=== PATIENT | male | born 1980 | race Caucasian/White ===

== ENCOUNTER 2018-10-09 12:43 | Emergency (ER) | payer OTHER ==
[2018-10-09] MEDS: ACETAMINOPHEN 500 MG TAB PO (14:50)
[2018-10-09] MEDS: ONDANSETRON 4 MG INJ IV (14:50)
[2018-10-09] MEDS: SOD CHLORIDE 0.9% 1,000 ML IV (14:51)
[2018-10-09] MEDS: morphine 4 MG/ML VIAL IV (14:58)
[2018-10-09 15:05] LABS: WHITE BLOOD COUNT 13.4 10^3/ul (4.8-10.8)
[2018-10-09 15:05] LABS: ABNORMAL IP MESSAGE 1; HEMATOCRIT 44.5 % (42.0-52.0); HEMOGLOBIN 15.1 g/dl (14.0-18.0); MEAN CORPUSCULAR HEMOGLOBIN 29.5 pg (29.0-33.0); MEAN CORPUSCULAR HGB CONC 33.9 g/dl (32.0-37.0); MEAN CORPUSCULAR VOLUME 86.9 fl (82.0-101.0); MEAN PLATELET VOLUME 9.7 fl (7.4-10.4); PLATELET COUNT 236 10^3/UL (140-415); POSITIVE DIFF @See below; RED BLOOD COUNT 5.12 10^6/ul (4.70-6.10); RED CELL DISTRIBUTION WIDTH 12.4 % (11.5-14.5)
[2018-10-09 15:13] LABS: ADD UMIC YES; UR ASCORBIC ACID NEGATIVE (NEGATIVE); UR BILIRUBIN (Dip) NEGATIVE (NEGATIVE); UR BLOOD (Dip) NEGATIVE (NEGATIVE); UR CLARITY CLEAR (CLEAR); UR COLOR YELLOW (YELLOW); UR GLUCOSE (Dip) NEGATIVE (NEGATIVE); UR KETONES (Dip) TRACE mg/dL (NEGATIVE); UR LEUKOCYTE ESTERASE (Dip) NEGATIVE Leu/ul (NEGATIVE); UR MUCUS FEW /HPF (NONE SEEN); UR NITRITE (Dip) NEGATIVE (NEGATIVE); UR RBC 3 /HPF (0-5); UR SPECIFIC GRAVITY (Dip) 1.026 (1.003-1.030); UR TOTAL PROTEIN (Dip) 1+ mg/dl (NEGATIVE); UR UROBILINOGEN (Dip) NEGATIVE (NEGATIVE); UR WBC 1 /HPF (0-5)
[2018-10-09 15:18] LABS: ADD MAN DIFF? YES
[2018-10-09 15:27] LABS: ALANINE AMINOTRANSFERASE 30 IU/L (13-69); ALBUMIN 4.7 g/dl (3.3-4.9); ALBUMIN/GLOBULIN RATIO 1.38; ALKALINE PHOSPHATASE 81 IU/L (42-121); ANION GAP 10 (5-13); ASPARTATE AMINO TRANSFERASE 22 IU/L (15-46); BILIRUBIN,INDIRECT 1.1 mg/dl (0-1.1); BILIRUBIN,TOTAL 1.1 mg/dl (0.2-1.3); BLOOD UREA NITROGEN 12 mg/dl (7-20); CALCIUM 9.5 mg/dl (8.4-10.2); CARBON DIOXIDE 26 mmol/L (21-31); CHLORIDE 103 mmol/L (97-110); CREATININE 0.94 mg/dl (0.61-1.24); Estimated GFR > 60 mL/min (>60); GLUCOSE 121 mg/dl (70-220); LIPASE 55 U/L (23-300); POTASSIUM 3.8 mmol/L (3.5-5.1); SODIUM 139 mmol/L (135-144); TOTAL PROTEIN 8.1 g/dl (6.1-8.1)
[2018-10-09] MEDS: SOD CHLORIDE 0.9% 100 ML (15:48)
[2018-10-09 16:01] LABS: LYMPHOCYTES #M 1.4 10^3/ul (0.8-2.9); LYMPHOCYTES % (M) 11 % (15-51); MONOCYTE #M 3.3 10^3/ul (0.3-0.9); MONOCYTES % (M) 25 % (0-11); REACTIVE LYMPHOCYTES #M 0.4 10^3/ul (0.0-0.0); REACTIVE LYMPHOCYTES% (M) 3 % (0-0); SEGMENTED NEUTROPHILS (M) % 61 % (39-77); SMUDGE%M 3 % (0-0)
[2018-10-09] MEDS: IOHEXOL 300MG/ML 150 ML BTL (17:15)
== END 2018-10-09 19:42 | disposition home or self-care (01) ==
LOC: FTE 12:43
DX: R10.31 Right lower quadrant pain (principal); R50.9 Fever, unspecified
CPT/HCPCS: 36415; 74177; 80053; 81001; 83605; 83690; 85025; 87040-91; 96374; 99285-25